=== PATIENT | male | born 1995 | race Caucasian/White ===

== ENCOUNTER 2016-06-29 12:09 | Inpatient (IN) | payer BC ==
--- NOTE | 2016-06-29 12:34 | EDPHY ---
H & P Stated Complaint: POSSIBLY FELL OFF SKATEBOARD STRUCK HEAD AND R ELBOW Time Seen by Provider: 06/29/16 12:34 HPI/ROS: HPI CHIEF COMPLAINT: Head injury, headache HISTORY OF PRESENT ILLNESS: This patient very pleasant 21-year-old male denies any significant medical or surgical history presents to the emergency room with a headache and concussion like symptoms after he developed a head strike while skateboarding Wednesday. Patient tells me that he was skateboarding Wednesday night he had alcohol to drink he tells me was intoxicated and fell off his skateboard with a head strike against concrete. He thinks he may have hit the front of his head ever since then he has had a persistent severe 10/10 global headache, with associated nausea, photophobia and multiple episodes of nonbilious nonbloody vomiting. Patient tells me all of yesterday could not get out of bed due to the severe pain when he would move his head and ongoing nausea vomiting. He also endorses midline cervical spine pain. He denies any other areas of injury specifically denies extremity injury. He called his mom [place] he is a [employer] student she recommended he come to the hospital to be evaluated. Past Medical History:Denies significant medical history Past Surgical History: Denies significant surgical history Social History: Denies daily use of drugs alcohol tobacco products, does endorse occasional marijuana and occasional alcohol, [employer] student Family History: Noncontributory ROS REVIEW OF SYSTEMS: A comprehensive 10 point review of systems is otherwise negative aside from elements mentioned in the history of present illness. Exam Constitutional appears nontoxic, triage nursing summary reviewed, vital signs reviewed, awake/alert. Eyes normal conjunctivae and sclera, EOMI, PERRLA. HENT head/neck: No crepitus, and no significant midline cervical spine pain on exam, head is atraumatic, moist mucus membranes, no epistaxis, neck supple/ no meningismus, no raccoon eyes. Respiratory clear to auscultation bilaterally, normal breath sounds, no respiratory distress, no wheezing. Cardiovascular rate normal, regular rhythm, no murmur, no edema, distal pulses normal. Gastrointestinal soft, non-tender, no rebound, no guarding, normal bowel sounds, no distension, no pulsatile mass. Genitourinary no CVA tenderness. Musculoskeletal no midline vertebral tenderness, full range of motion, no calf swelling, no tenderness of extremities, no meningismus, good pulses, neurovascularly intact. Skin pink, warm, & dry, no rash, skin atraumatic. Neurologic awake, alert and oriented x 3, AAOx3, moves all 4 extremities equally, motor intact, sensory intact, CN II-XII intact, normal cerebellar, normal vision, normal speech. Psychiatric normal mood/affect. Heme/Lymph/Immune no lymphadenopathy. Differential Diagnosis: Includes but is not limited to in a particular order closed-head injury, subdural, epidural, traumatic subarachnoid, skull fracture, concussion, closed-head injury, soft tissue injury, brain contusion, cervical spine injury, fracture, cervical strain Medical Decision Making: this patient had an IV established will be hydrated with IV fluids, IV Zofran for nausea, IV Dilaudid for pain control. Patient had a CT scan of head and neck to rule out significant trauma including brain or parenchymal contusion. Clinically on exam he does have a closed head injury with concussion. Re-evaluation: CT scan of the head without IV contrast for trauma. The results of the study are this shows a right frontal parenchymal hemorrhage greater than the left frontal, also has a right inferior temporal region of hemorrhage, and right posterior parietal The study was read by Dr. Velazquez. I viewed the images myself on the PACS system. CT scan of the cervical spine without IV contrast for trauma The results of the study are negative for acute traumatic injury. The study was read by Dr. Velazquez. I viewed the images myself on the PACS system. 1331: Spoke with Neurosurgery Dr. Lincoln who will come and see and evaluate the patient recommends admission to medical-surgical bed. 1358: spoke with this patient's parents at length about his CT scan findings of his head and neck and his injury. They understand to be admitted to the hospital for further care of his but traumatic brain injury. The patient is comfortable this plan at this time is receiving IV fluids, nausea medicine pain medicine is resting comfortably no acute distress. His neurological exam is unremarkable. He is not having seizure activity. He is stable for [facility] admission 1401: spoke with Trauma surgery Dr. De who does not feel that he needs to the formally see this patient this time is it is isolated neuro trauma. He will be happy to formally consult if Neurosurgery and needs him. Critical Care: Total Critical Care Time Spent Managing this Patient: 65 Minutes. This time was spent Exclusively with this patient. This Care was exclusive of procedures. The Organ System/life at risk was neurological This Patient was in Critical Condition because traumatic subarachnoid, brain parenchymal contusions Source: Patient - Personal History Current Tetanus Diphtheria and Acellular Pertussis (TDAP): Yes Tetanus Vaccine Date: < 10 YEARS - Medical/Surgical History Hx Asthma: No Hx Chronic Respiratory Disease: No Hx Diabetes: No Hx Cardiac Disease: No Hx Renal Disease: No Hx Cirrhosis: No Hx Alcoholism: No Hx HIV/AIDS: No Hx Splenectomy or Spleen Trauma: No Other PMH: PT DENIES - Social History Smoking Status: Current every day smoker Constitutional: Initial Vital Signs Temperature (C) 36.6 C 06/29/16 12:12 Heart Rate 67 06/29/16 12:12 Respiratory Rate 16 06/29/16 12:12 Blood Pressure 137/72 H 06/29/16 12:12 O2 Sat (%) 97 06/29/16 12:12 O2 Delivery Mode Room Air Allergies/Adverse Reactions: No Known Allergies Allergy (Unverified 06/29/16 12:16) Home Medications: Medication Instructions Recorded Ibuprofen [Motrin (*)] 600 mg PO Q6HRS PRN #0 tab 06/30/16 Ondansetron Odt [Zofran Odt 4 mg 4 mg PO Q4HRS PRN #30 tab 06/30/16 (*)] Medical Decision Making - Data Points Laboratory Results: Laboratory Results 06/29/16 12:55 06/29/16 12:55 Medications Given: Discontinued Medications Hydromorphone HCl (Dilaudid) 0.5 mg IVP EDNOW ONE Stop: 06/29/16 12:46 Last Admin: 06/29/16 12:59 Dose: 0.5 mg Sodium Chloride (Ns) 1,000 mls @ 0 mls/hr IV ONCE ONE PRN Reason: Wide Open Stop: 06/29/16 12:46 Last Admin: 06/29/16 13:00 Dose: 1,000 mls Sodium Chloride (Ns) 1,000 mls @ 0 mls/hr IV ONCE ONE PRN Reason: Wide Open Stop: 06/29/16 13:52 Last Admin: 06/29/16 13:55 Dose: 1,000 mls Ondansetron HCl (Zofran) 4 mg IVP EDNOW ONE Stop: 06/29/16 12:46 Last Admin: 06/29/16 13:00 Dose: 4 mg Departure - Departure Disposition: [facility] Inpatient Acute Clinical Impression: Head injury Qualifiers: Encounter type: initial encounter Qualified Code(s): S09.90XA - Unspecified injury of head, initial encounter Concussion Qualifiers: Encounter type: initial encounter Loss of consciousness presence/duration: with LOC of unspecified duration Qualified Code(s): S06.0X9A - Concussion with loss of consciousness of unspecified duration, initial encounter Cervical strain Qualifiers: Encounter type: initial encounter Qualified Code(s): S16.1XXA - Strain of muscle, fascia and tendon at neck level, initial encounter Traumatic brain injury Qualifiers: Encounter type: initial encounter Loss of consciousness presence/duration: with LOC of 31 min - 59 min Qualified Code(s): S06.9X2A - Unspecified intracranial injury with loss of consciousness of 31 minutes to 59 minutes, initial encounter Brain contusion Qualifiers: Encounter type: initial encounter Loss of consciousness presence/duration: with LOC of 31 min - 59 min Qualified Code(s): S06.2X2A - Diffuse traumatic brain injury with loss of consciousness of 31 minutes to 59 minutes, initial encounter Traumatic subarachnoid bleed with LOC of 30 minutes or less Qualifiers: Encounter type: initial encounter Qualified Code(s): S06.6X1A - Traumatic subarachnoid hemorrhage with loss of consciousness of 30 minutes or less, initial encounter Condition: Good
[2016-06-29] MEDS ORDERED: ONDANSETRON 4 MG/2 ML VIAL ONE (12:45)
[2016-06-29] MEDS ORDERED: NS 1,000 ML IV ONE ×2 (12:45→13:51)
[2016-06-29] MEDS ORDERED: HYDROmorphONE/DILAUDID 1 MG/ML SYR IVP ONE (12:45)
[2016-06-29] MEDS ORDERED: ONDANSETRON 4 MG/2 ML VIAL IVP ONE (12:45)
--- NOTE | 2016-06-29 13:32 | CT ---
Noncontrast Head CT and CT Cervical Spine 1301 hours History: Headache after fall. Technique: Standard noncontrast head CT protocol utilizing axial images was acquired through the mega varium. Images were reconstructed in multiple planes as well. Spiral imaging was obtained through the cervical spine. Images were reconstructed at 1.25 mm slice th ickness. Images were reconstructed in multiple planes. Dose reduction techniques were utilized. Findings: CT Head: Intraparenchymal contusion with hemorrhage is seen involving the inferior right frontal lobe with surrounding edema with a small component left inferior anterior frontal lobe in a parasagittal location. There is a second area of cortical contusion with edema right anterior frontal lobe slightl y more superior just above the level of the frontal sinuses. A similar smaller focus is also seen on the left anteriorly. Minimal parenchymal hemorrhage is also suspected right anterior temporal lobe. T iny focus of parenchymal or subarachnoid blood is also seen right posterior parietal lobe in a parasa gittal location. The remainder of the cerebral parenchyma has a normal attenuation. There are no masses, additional in tracranial hemorrhage, subdural collections, or evidence of recent cerebral infarction. The bones ar e unremarkable. Moderate mucosal thickening is present involving the sphenoid sinuses. The remainder of the paranasal sinuses are clear as well as mastoid air cells. CT Cervical Spine: Vertebral body heights are well maintained. There are no subluxations. No fracture s are seen. Facet joints are normal bilaterally. Paravertebral soft tissues demonstrate no significan t abnormality. Impression: 1. Parenchymal contusion and hemorrhage bilateral frontal lobes right side greater than left as well as anterior right temporal lobe. Tiny focus of cortical or subarachnoid blood right posterior parieta l lobe as well. 2. Sphenoid sinus disease. 3. Normal CT cervical spine. These findings were discussed by telephone with Dr. Abad Fisher at 1327 hrs.
[2016-06-29 13:41] LABS: % IMMATURE GRANULYOCYTES 0.4 % (0.0-1.1); ABSOLUTE IMMATURE GRANULOCYTES 0.05 10^3/uL (0.00-0.10); ADD DIFF? NO; ADD MORPH? NO; ADD SCAN? NO; ATYPICAL LYMPHOCYTE FLAG 0 (0-99); FRAGMENT RBC FLAG 0 (0-99); HEMATOCRIT 44.8 % (40.0-51.0); LEFT SHIFT FLG 0 (0-99); LIPEMIA HEMOLYSIS FLAG 90 (0-99); MEAN CELL HEMOGLOBIN 33.7 pg (27.9-34.1); MEAN CELL HEMOGLOBIN CONCENTR. 35.7 g/dL (32.4-36.7); MEAN CELL VOLUME 94.3 fL (81.5-99.8); MEAN PLATELET VOLUME 10.8 fL (8.7-11.7); PLATELET CLUMPS FLAG 0 (0-99); PLATELET COUNT 241 10^3/uL (150-400); RED BLOOD CELL COUNT 4.75 10^6/uL (4.40-6.38); RED CELL DISTRIBUTION WIDTH 11.2 % (11.5-15.2)
[2016-06-29 13:47] LABS: ANION GAP 12 mEq/L (8-16); CALCIUM 9.6 mg/dL (8.5-10.4); CARBON DIOXIDE 25 mEq/l (22-31); CHLORIDE 99 mEq/L (97-110); CREATININE 0.8 mg/dL (0.7-1.3); GLOMERULAR FILTRATION RATE > 60; GLUCOSE 103 mg/dL (70-100); POTASSIUM 3.8 mEq/L (3.5-5.2); SODIUM 136 mEq/L (134-144)
--- NOTE | 2016-06-29 14:45 | GHP ---
[f rep st] HISTORY AND PHYSICAL DATE OF ADMISSION: 06/29/2016 REASON FOR CONSULT: Trauma. TIME SEEN: The patient was seen and evaluated at approximately 1:45 p.m. on in the [facility] Emergency Department. HISTORY OF PRESENT ILLNESS: The patient is a 21-year-old who was skateboarding on Wednesday night approximately 2 days ago when a rock got caught in his wheels , and he went forward off the skateboard onto the ground hitting his head. He states that he did not have any loss of consciousness at that time and ultimately felt fine at the time of the event. He did not seek any medical treatment, went home, and went to bed. At that time, he still felt completely normal and slept normally that night; however, yesterday, when he woke up in the morning, he had significant headache and some nausea and vomiting which lasted throughout the day. After discussing with his mother who lives out of state, she recommended he come to the emergency department to be evaluated which he did this morning. CT scan of the head reveals a small roughly 1 to 1.5 cm gyrus rectus contusions in the right greater than left frontal lobe and a small frontal pole contusion on the right side as well. He also has a small area of subarachnoid hemorrhage in the left parietal region which appears to be a contrecoup injury. Ultimately, at this time, he is feeling relatively normal but still slightly nauseated. He said he was still having some trouble keeping food down this morning but otherwise has no complaints. He had a CT of the cervical spine which was negative for any fractures or other traumatic injury and does not have any neck pain. He was not wearing a helmet during the fall. REVIEW OF SYSTEMS: 10-point review of systems is negative other than described in HPI. PAST MEDICAL HISTORY: No significant past medical history. PAST SURGICAL HISTORY: None. ALLERGIES: None. MEDICATIONS: None. 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 He drinks occasional social alcohol and occasionally smokes cigarettes. He denies other drug use. FAMILY HISTORY: Positive for a stroke in the maternal grandmother, but no other history of head trauma. PHYSICAL EXAMINATION: VITAL SIGNS: Currently, he has normal stable vital signs. GENERAL: He is awake, alert, oriented x3. HEENT: The pupils are equal , round, and react to light. Extraocular movements are intact. Face is symmetric. Tongue is midline. His speech is clear and fluent. EXTREMITIES: His upper extremities have full 5/5 strength bilaterally in all muscle groups, which is the same in the lower extremities. NEUROLOGIC: His sensation is normal. Deep tendon reflexes are normal. CHEST: Clear to auscultation bilaterally. HEART: With regular rate and rhythm. No rubs, murmurs, or gallops. ABDOMEN: Soft, nontender, nondistended with active bowel sounds in all 4 quadrants. IMAGING REVIEW: See HPI. ASSESSMENT: The patient is a 21-year-old status post fall off of a skateboard approximately [address] of the brain shows some small gyrus rectus contusions with a small amount of surrounding vasogenic edema, typical for this time point. Overall, he is doing well but still having some nausea and vomiting and other postconcussive symptoms. PLAN: Our plan at this point would be to admit him for observation overnight. We will hydrate him with IV fluids, and if he is able to take oral hydration and food by tomorrow, he would likely be able to be discharged home. I do not see any reason to repeat the imaging at this point given that we are already more than 36 hours out from the injury. I told him that it would be normal to experience some post-concussive symptoms for even up to a month or 2 after the injury to include headaches, some mild nausea, memory problems, impulsiveness, and mild cognitive dysfunction. I told him I do not expect any other lasting side effects from this. I also counseled him for taking precautions to not experience any other head injuries in the near future, mainly in the next 6 months. He understands this and is agreeable. His mother was updated via phone by the ER physicians. /[id number]/MODL MTDD
[2016-06-29] MEDS ORDERED: METOCLOPRAMIDE 10 MG TAB PO PRN (14:47)
[2016-06-29] MEDS ORDERED: METOCLOPRAMIDE 10 MG/2 ML VIAL IVP PRN (14:47)
[2016-06-29] MEDS ORDERED: ONDANSETRON 4 MG/2 ML VIAL IVP PRN (14:47)
[2016-06-29] MEDS ORDERED: diphenhydrAMINE 25 MG CAP PO PRN (14:47)
[2016-06-29] MEDS ORDERED: ACETAMINOPHEN 325 MG TAB PO PRN (14:47)
[2016-06-29] MEDS: NS W/ 20 KCl/L 1,000 ML IV SCH ×2 (15:28→22:33)
[2016-06-29] MEDS: HYDROCODONE/APAP 5/325 TAB PO PRN ×2 (15:33→21:14)
[2016-06-29] MEDS: IBUPROFEN 200 MG TAB PO PRN (22:38)
[2016-06-30] MEDS: NS W/ 20 KCl/L 1,000 ML IV SCH (07:11)
--- NOTE | 2016-06-30 10:37 | NEUSURGPN ---
Assessment/Plan: 21 yo male s/p fall with frontal contusions. -Neuro intact and doing well this am. Some nausea but improving -ok to dc home this morning -Follow up wtih Dr. landaverde prn -Script for Zofran given and school note given -Call with any changes in neuro or motor exam. Subjective: Patient with some nausea but improving. No dizziness, only mild headaches, no vision changes,slurred speech, confusion. Objective: NAD, VSS Alert, oriented X3 CN II-XII grossly intact PERRL, EOMI BUE/BLE 09/18= - Physician Discussed Patient with : Zackery Neurosurgery Physical Exam - Vitals, I&O, Labs I and O 06/29/16 06/30/16 07/01/16 05:59 05:59 05:59 Intake Total 6764 Output Total 400 Balance 6364 Weight 83.915 kg Intake: Oral (ml) 1450 IV Infused (ml) 5314 NS W/ 20 KCl/L 1,000 ml @ 1814 125 mls/hr IV CONT PIETER Rx#:[id number] Ns 1,000 ml @ Wide Open 2000 IV ONCE ONE Rx#: [id number] Output: Urine (ml) 400 Urinal 400 Vital Signs Temp Pulse Resp BP Pulse Ox 36.7 C 51 L 16 119/80 94 06/30/16 08:00 06/30/16 08:00 06/30/16 08:00 06/30/16 08:00 06/30/16 08:00 ICD10 Worksheet Patient Problems: Problems Problem Status Onset Brain contusion Acute Cervical strain Acute Concussion Acute Head injury Acute Traumatic brain injury Acute Traumatic subarachnoid bleed with LOC of 30 minutes or less Acute
[2016-06-30] MEDS: IBUPROFEN 200 MG TAB PO PRN ×2 (11:38→18:44)
[2016-06-30] MEDS: ONDANSETRON DISINTEGRATING 4 MG TAB PO PRN ×2 (11:39→18:47)
[2016-06-30] MEDS: HYDROCODONE/APAP 5/325 TAB PO PRN (20:58)
[2016-07-01] MEDS: HYDROCODONE/APAP 5/325 TAB PO PRN ×4 (06:27→21:54)
--- NOTE | 2016-07-01 07:11 | NEUSURGPN ---
Assessment/Plan: Assessment: 21 yo male s/p fall with frontal contusions and N/V Plan: -Neuro intact and doing ok this am. Some nausea but improved a bit per pt -continued nausea-will add scopolamine patch -continue with PT/OT/ST -will continue with hospital stay until patient feels better -Follow up with Dr. Vizcarra -Script for Zofran given and school note given yesterday -Call with any changes in neuro or motor exam -d/w Dr Vizcarra Subjective: Awake and alert. NAD. Not eating yet. No neck/chest/abd or gu complaints. Pt with continued mild stable headache. Objective: AAO x 3, PERRLA/EOMI no droop CN 2-12 grossly intact +lt touch 5/5 BUE/BLE = Neuro Check Frequency: per routine Urinary Catheter in Place: No - Physician Discussed Patient with : Zackery Neurosurgery Physical Exam - Vitals, I&O, Labs I and O 06/30/16 07/01/16 07/02/16 05:59 05:59 05:59 Intake Total 6764 1950 Output Total 400 575 Balance 6364 1375 Weight 83.915 kg Intake: Oral (ml) 1450 1950 IV Infused (ml) 5314 NS W/ 20 KCl/L 1,000 ml @ 1814 125 mls/hr IV CONT PIETER Rx#:[id number] Ns 1,000 ml @ Wide Open 2000 IV ONCE ONE Rx#: [id number] Output: Urine (ml) 400 575 Urinal 400 575 Other: Number of Voids Toilet 2 Vital Signs Temp Pulse Resp BP Pulse Ox 36.7 C 50 L 18 138/84 H 93 06/30/16 23:19 06/30/16 23:19 06/30/16 23:19 06/30/16 23:19 06/30/16 23:19 ICD10 Worksheet Patient Problems: Problems Problem Status Onset Brain contusion Acute Cervical strain Acute Concussion Acute Head injury Acute Traumatic brain injury Acute Traumatic subarachnoid bleed with LOC of 30 minutes or less Acute
[2016-07-01] MEDS ORDERED: SCOPOLAMINE HYDROBROMIDE 1.5 MG PATCH TD SCH (07:30)
[2016-07-01] MEDS: IBUPROFEN 200 MG TAB PO PRN (21:54)
[2016-07-01 23:48] VITALS: RESP 16
[2016-07-02] MEDS: HYDROCODONE/APAP 5/325 TAB PO PRN ×3 (04:25→14:18)
[2016-07-02 07:36] VITALS: TEMP 98.2; O2SAT 92
--- NOTE | 2016-07-02 08:14 | SOAPPROG ---
SOAP Progress Note Assessment/Plan: Assessment/Plan Assessment: 21 yo male s/p fall with frontal contusions and N/V Plan: -Neuro intact and doing ok this am. Nausea greatly improved this am with scop patch -continue with PT/OT/ST -Repeat head CT yesterday stable - parents informed -Follow up with Dr. Vizcarra -Script for Zofran given and school note given to patient -Call with any changes in neuro or motor exam -Seen by Dr Vizcarra as well -Dispo- If continues to be able to tolerate po and nausea improved, can discharge later today Subjective: Patient with improved nausea this morning and no headache currently. Able to tolerate dinner last night. Objective: Vital Signs Temp Pulse Resp BP Pulse Ox 36.8 C 52 L 16 119/76 92 07/02/16 07:34 07/02/16 07:34 07/02/16 07:34 07/02/16 07:34 07/02/16 07:34 07/01/16 07/02/16 07/03/16 05:59 05:59 05:59 Intake Total 500 Output Total 1050 Balance -550 NAD,VSS BUE/BLE 5/5= Alert, Awake, conversing appropriately CN II-XII grossly intact ICD10 Worksheet Patient Problems: Problems Problem Status Onset Brain contusion Acute Cervical strain Acute Concussion Acute Head injury Acute Traumatic brain injury Acute Traumatic subarachnoid bleed with LOC of 30 minutes or less Acute
[2016-07-02 12:08] VITALS: BP 128/70; PULSE 68
== END 2016-07-02 15:28 | disposition home or self-care (01) | DRG 84 ==
LOC: INTOOBSV 13:32 → F2N 15:07 → F3N 06-30 22:25 → OBSVTOIN 07-01 07:01
PROVIDERS: ADMIT Neurological Surgery; ATTEND Neurological Surgery
DX: S06.6X9A Traumatic subarachnoid hemorrhage with loss of consciousness of unspecified duration, initial encounter (principal); Y93.51 Activity, roller skating (inline) and skateboarding; V00.131A Fall from skateboard, initial encounter; F17.210 Nicotine dependence, cigarettes, uncomplicated
CPT/HCPCS: 92507-GN; 92523-GN; 96374; 97116-GP; 97162-GP; 97165-GO; 97535-GO; G0378; J1170; J2405

== ENCOUNTER 2016-07-06 13:22 | Emergency (ER) | payer BC ==
[2016-07-06 13:28] VITALS: TEMP 98.2
--- NOTE | 2016-07-06 13:35 | EDPHY ---
H & P Stated Complaint: Acute low back pain, difficulty walking, recent hx CHI while skateboarding Time Seen by Provider: 07/06/16 13:32 HPI/ROS: CHIEF COMPLAINT: Low back pain. HISTORY OF PRESENT ILLNESS: This is a 21-year-old male who was discharged from the hospital 4 days ago after an intracranial hemorrhage secondary to a skateboarding accident. He reports that during his second day in the hospital he developed atraumatic lower back pain that has been worsening since onset. The pain is worsened with movement and has been causing him difficulty walking. The pain is midline and radiates to the right side of his back but not his legs. He denies numbness, weakness. He has been taking [place] and a muscle relaxant for the pain. No fever, chills, chest pain, shortness of breath, palpitations, vomiting, diarrhea, urinary complaints, headache, lightheadedness. REVIEW OF SYSTEMS: Aside from elements discussed in the HPI, a comprehensive 10-point review of systems was reviewed and is negative. PAST MEDICAL HISTORY: Intracranial hemorrhage. 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 VITAL SIGNS: Reviewed by me GENERAL: Well-developed, well-nourished, in no respiratory distress. Uncomfortable when he being asked to move about the bed. HEENT: Atraumatic. Eyes: No icterus, no injection. Mouth: moist mucous membranes. No erythema or lesions. Neck: supple with no adenopathy. LUNGS: Clear to auscultation bilaterally, no wheezes, rhonchi or rales. CARDIAC: Regular rate and rhythm, no rubs, murmurs or gallops. ABDOMEN: Soft, nontender, nondistended, bowel sounds normal. BACK: No trauma is noted. Mild right paraspinous L4 tenderness to palpation along the spine. Paraspinous muscle spasm is present. Neurological exam: Straight leg raise test is negative bilaterally. Hip flexion, knee extension, knee flexion, dorsiflexion and plantar flexion are 5/ 5 bilaterally. EHL 5 over 5. Sensation is intact to light touch throughout. 2 + knee and ankle jerk bilaterally. Vascular exam: Dorsalis pedis and posterior tibial pulses are intact. Brisk capillary refill. EXTREMITIES: No trauma. No edema. Range of motion is normal throughout. NEURO: Alert and oriented, grossly nonfocal. SKIN: Warm and dry, no rash. PSYCHIATRIC: Normal mentation, no agitation. Portions of this note were transcribed by a medical appointment scheduler. I personally performed a history, physical exam, medical decision making, and confirmed accuracy of information the transcribed note. Source: Patient Exam Limitations: No limitations - Personal History Current Tetanus/Diphtheria Vaccine: Yes Current Tetanus Diphtheria and Acellular Pertussis (TDAP): Yes Tetanus Vaccine Date: < 10 YEARS - Medical/Surgical History Hx Asthma: No Hx Chronic Respiratory Disease: No Hx Diabetes: No Hx Cardiac Disease: No Hx Renal Disease: No Hx Cirrhosis: No Hx Alcoholism: No Hx HIV/AIDS: No Hx Splenectomy or Spleen Trauma: No Other PMH: Closed head injury - Social History Smoking Status: Current every day smoker Constitutional: Initial Vital Signs Temperature (C) 36.8 C 07/06/16 13:23 Heart Rate 108 H 07/06/16 13:23 Respiratory Rate 16 07/06/16 13:23 Blood Pressure 127/85 H 07/06/16 13:23 O2 Sat (%) 98 07/06/16 13:23 O2 Delivery Mode Room Air Allergies/Adverse Reactions: No Known Allergies Allergy (Unverified 06/29/16 12:16) Home Medications: Medication Instructions Recorded Ibuprofen [Motrin (*)] 600 mg PO Q6HRS PRN #0 tab 06/30/16 Ondansetron Odt [Zofran Odt 4 mg 4 mg PO Q4HRS PRN #30 tab 06/30/16 (*)] Cyclobenzaprine [Flexeril 10 MG 10 mg PO TID PRN #15 tab 07/06/16 (*)] methylPREDNISolone [Medrol Dose 4 mg PO DAILY #1 each 07/06/16 Anthony] oxyCODONE/APAP 5/325 [Percocet 1 tab PO TID PRN #20 tab 07/06/16 5/325 (*)] Medical Decision Making - Diagnostics Imaging: X-ray lumbar spine was obtained. I viewed the images myself on the PACS system. My interpretation of the images is: No acute fractures. The radiologist interpretation is pending at this time. I discussed the x-ray findings with the patient. ED Course/Re-evaluation: Lumbar spine x-ray ordered. 2 tab PO Percocet administered for pain. Lumbar spine does not demonstrate any acute bony abnormalities. Results were discussed the patient. He is reassured. I do not believe that the patient is an MRI for acute radicular symptoms. He has no complaints of numbness, tingling, or pain radiating into his legs. There is no bowel reporting incontinence. Patient was discharged with a Medrol Dosepak, [place] for severe pain, instructions regarding ibuprofen, and encouraged to follow up without fail with Dr. Vizcarra, or 1 of his colleagues for further neurosurgical evaluation. Differential Diagnosis: After history was obtained and physical exam performed, the differential for back pain was considered including but not limited to muscular pain, herniated disc, spine fracture, intra-abdominal causes, and urinary tract infection. - Data Points Medications Given: Discontinued Medications Oxycodone/Acetaminophen (Percocet 5/325) 2 tab PO EDNOW ONE Stop: 07/06/16 13:46 Last Admin: 07/06/16 13:52 Dose: 2 tab Departure - Departure Disposition: Home, Routine, Self-Care Clinical Impression: Low back pain Qualifiers: Chronicity: acute Back pain laterality: right Sciatica presence: without sciatica Qualified Code(s): M54.5 - Low back pain Condition: Good Instructions: Acute Low Back Pain (ED) Additional Instructions: Call your neurosurgeon tomorrow to set up a follow up appointment. You have been given the telephone number of Dr. Vizcarra, neurosurgery. Please take Percocet as needed for severe pain. Please take the Medrol Dosepak as prescribed. Use the Flexeril muscle relaxant as needed. Return to the emergency department for incontinence, worsening pain, numbness or weakness in your legs, or any other serious worsening of condition. Referrals: VINCENZO KHAN [Primary Care Provider] - As per Instructions Lyndon Vizcarra MD [Medical Doctor] - As per Instructions Prescriptions: Cyclobenzaprine [Flexeril 10 MG (*)] 10 mg PO TID PRN #15 tab PRN Reason: Spasms methylPREDNISolone [Medrol Dose Anthony] 4 mg PO DAILY #1 each oxyCODONE/APAP 5/325 [Percocet 5/325 (*)] 1 tab PO TID PRN #20 tab PRN Reason: Pain Report Scribed for: Briana Dee Report Scribed by: Jalen Espinoza Date of Report: 07/06/16 Time of Report: 13:35
[2016-07-06] MEDS ORDERED: OXYCODONE/APAP 5/325 TAB PO ONE (13:45)
[2016-07-06 14:52] VITALS: BP 138/94; PULSE 82; RESP 14; O2SAT 96
== END 2016-07-06 14:48 | disposition home or self-care (01) ==
DX: M54.5 Low back pain (principal); F17.200 Nicotine dependence, unspecified, uncomplicated